=== PATIENT | female | born 1955 | race Caucasian/White ===

== ENCOUNTER → 2019-11-23 | Outpatient (CLI) | payer MEDICARE | END | disposition home or self-care (01) | LOC: LAB SHORT 08:10 → PLD 08:10 | DX: D48.5 Neoplasm of uncertain behavior of skin (principal); L82.1 Other seborrheic keratosis | CPT/HCPCS: 88305 ==

== ENCOUNTER → 2020-01-15 | Outpatient (CLI) | payer MEDICARE | LOC: LAB 14:51 → LAB SHORT 14:51 | DX: U07.1 COVID-19 (principal) | CPT/HCPCS: U0003 ==

== ENCOUNTER → 2021-01-02 | Outpatient (CLI) | payer OTHER | END | disposition home or self-care (01) | LOC: LAB SHORT 10:34 | DX: B35.1 Tinea unguium (principal); L60.2 Onychogryphosis | CPT/HCPCS: 88305; 88312 ==

== ENCOUNTER 2021-09-25 07:49 | Day surgery (SDC) | payer OTHER ==
[~2021-09-25] VITALS: Ht 162.6 cm; Wt 59.8 kg
[2021-09-25] MEDS ORDERED: ZYRTEC10 M2 (08:10)
[2021-09-25] MEDS ORDERED: CYCL10 (08:10)
[2021-09-25] MEDS ORDERED: GLUCHON (08:10)
[2021-09-25] MEDS ORDERED: OYSTER SHELL 51 EAC2 (08:10)
[2021-09-25] MEDS ORDERED: LACT (08:11)
[2021-09-25] MEDS ORDERED: HAIR, SKIN AND1 EAC1 (08:11)
[2021-09-25] MEDS ORDERED: SUMA25 (08:11)
== END 2021-09-25 10:23 | disposition home or self-care (01) ==
LOC: ORSCSDS 07:49
PROVIDERS: Internal Medicine Gastroenterology
PROC: 0DBN8ZX Excision of Sigmoid Colon, Via Natural or Artificial Opening Endoscopic, Diagnostic (ICD-10-PCS; principal; 2021-09-25 09:00)
PROC: 0D757ZZ Dilation of Esophagus, Via Natural or Artificial Opening (ICD-10-PCS; principal; 2021-09-25 09:00)
PROC: 0DB58ZX Excision of Esophagus, Via Natural or Artificial Opening Endoscopic, Diagnostic (ICD-10-PCS; principal; 2021-09-25 09:00)
PROC: 0DBM8ZX Excision of Descending Colon, Via Natural or Artificial Opening Endoscopic, Diagnostic (ICD-10-PCS; principal; 2021-09-25 09:00)
PROC: 0DBK8ZX Excision of Ascending Colon, Via Natural or Artificial Opening Endoscopic, Diagnostic (ICD-10-PCS; principal; 2021-09-25 09:00)
PROC: 0DB98ZX Excision of Duodenum, Via Natural or Artificial Opening Endoscopic, Diagnostic (ICD-10-PCS; principal; 2021-09-25 09:00)
DX: Z12.11 Encounter for screening for malignant neoplasm of colon (principal); R13.10 Dysphagia, unspecified; K21.9 Gastro-esophageal reflux disease without esophagitis; D12.2 Benign neoplasm of ascending colon; D12.4 Benign neoplasm of descending colon; K57.30 Diverticulosis of large intestine without perforation or abscess without bleeding; K44.9 Diaphragmatic hernia without obstruction or gangrene; K22.2 Esophageal obstruction; Z87.891 Personal history of nicotine dependence
CPT/HCPCS: 88305; J2704; J7120

== ENCOUNTER 2022-05-14 11:13 | Inpatient (IN) | payer OTHER ==
[~2022-05-14] VITALS: Ht 162.6 cm; Wt 60.0 kg
[~2022-05-14 11:13] MED LIST: CYCL10; GLUCHON PO; HAIR, SKIN AND1 EAC1 PO; IMITREX50 M1 PO; LACT PO; OYSTER SHELL 51 EAC2 PO; ZYRTEC10 M2 PO
[2022-05-14 12:35] LABS: Calcium, Ionized (POC) 1.24 mmol/L (1.10-1.46); Chloride (POC) 100 mmol/L (98-108); Creatinine (POC) 0.7 mg/dL (0.6-1.0); Glucose (ISTAT POC) 111 mg/dL (70-99); Hemoglobin (POC) 13.9 g/dL (12.0-16.0); Sodium (POC) 135 mmol/L (135-148); Total CO2 (POC) 25 mmol/L (21-32)
[2022-05-14] MEDS ORDERED: GABA100 PO (21:27)
[2022-05-14] MEDS ORDERED: TRAM50 PO (21:28)
--- NOTE | 2022-05-15 14:53 | NUR ---
Upon reveiving a referral for spiritual care, I visited the patient. Her sister, Kristin, is bedside. We talk about pt's new cancer diagnosis and the thoughts and fears that surround how her world has been radically altered. She shares about her family, her 's blindness and her possible transfer to another hospital. She explains about her Bahai larissa, her evangelical ([employer]) and those who are praying and supporting her. I normalize her fears and feelings, I reinforce helpful attitudes and practices and provide therapeutic listening, gentle cemetery counselor and prayer. Patient responded well and showed signs of being encouraged in her larissa and an increase in hope about the path ahead. I will continue to remain available to patient and family.
--- NOTE | 2022-05-15 19:48 | NUR ---
SHIFT SUMMARY: PT A&O X4, PLEASANT, HAPPY AND ABLE TO VOICE NEEDS. PT HAD MODERATE PAIN THROUGHOUT THE SHIFT HAS IV DILAUDID, PO TYLENOL, AND PO FLEXERIL FOR PAIN MANAGEMENT THROUGHOUT THE SHIFT. PT HAD MODERATE PAIN WITH C-COLLAR, DR. REBOLLEDO CONTACTED ABOUT SWITCHING PT TO SOFT C-COLLAR BRACE FOR COMFORT. PT ABLE TO TOLERATE SOFT FOAM C-COLLAR AND COMFORTABLE. PT FAMILY AT BEDSIDE FOR SUPPORT DURING THE SHIFT. PT ABLE TO AMBULATE WITH SBA TO THE RESTROOM. PT IN BED WITH CALL LIGHT WITHIN REACH.
--- NOTE | 2022-05-16 04:07 | NUR ---
SUMMARY: PT A/OX4, CALLS APPROPRIATELY TO SPECIFY NEEDS AND IS PLEASANT AND COOPERATIVE W/CARE. SHE'S UP W/SBA TO TOILET OR BSC. SOFT C-COLLAR REMAINS IN PLACE AT ALL TIMES PER ORDERS. SHE CONT'S TO HAVE 8-10/10 NECK AND BACK PAIN WA R/T NEW DX MALIGNANT NEOPLASM W/SPINAL CORD COMPRESSION AND C2, C3 AND T5 COMPRESSION FRACTURES PER MRI. FLEXERIL CHANGED TO Q6H PRN FOR IMPROVED PAIN CONTROL AND WAS RECIEVED W/TYLENOL FOR TOLERABLE AFFECT. DILAUDID PROVIDED PRN FOR BREAKTHROUGH PAIN AND AMBIEN WAS GIVEN AT HS PER REQUEST FOR SLEEP. SHE'S AWAITING T/F FOR NEUROSURGICAL CONSULT AND TREATMENT W/MANY SUPPORTIVE FAMILY MEMBERS. NO ACUTE CHANGES, VSS/AFEBRILE. WCTM AND REPORT TO DAY RN.
[2022-05-16 05:27] LABS: BASOPHILS ABSOLUTE AUTO 0.02 K/mm3 (0.00-0.23); BASOPHILS PERCENT AUTO 0 % (0-2); EOSINOPHILS PERCENT AUTO 0 % (0-6); Hematocrit 37.2 % (33.0-51.0); IMMATURE GRAN ABSOLUTE AUTO 0.05 K/mm3 (0.00-0.10); IMMATURE GRAN PERCENT AUTO 1 % (0-1); LYMPHOCYTES ABSOLUTE AUTO 1.42 K/mm3 (0.84-5.20); LYMPHOCYTES PERCENT AUTO 14 % (21-46); MONOCYTES ABSOLUTE AUTO 0.84 K/mm3 (0.16-1.47); MONOCYTES PERCENT AUTO 8 % (4-13); Mean Corpuscular HGB 29.4 pg (26.0-34.0); Mean Corpuscular HGB Conc 34.9 g/dL (31.5-36.5); Mean Corpuscular Volume 84 fL (80-100); Mean Platelet Volume 8.8 fL (9.1-12.4); NEUTROPHILS ABSOLUTE AUTO 7.98 K/mm3 (1.96-9.15); NEUTROPHILS PERCENT AUTO 77 % (41-73); Platelet Count 217 K/mm3 (150-400); RDW Coefficient Variation 13.1 % (11.7-14.2); RDW Standard Deviation 40.1 fL (35.1-46.3); Red Blood Cell Count 4.42 M/mm3 (3.80-5.20); White Blood Cell Count 10.31 K/mm3 (4.00-11.30)
[2022-05-16 06:05] LABS: Bun/Creatinine Ratio 41.8 (12.0-20.0); Calcium, Blood 9.1 mg/dL (8.5-10.1); Creatinine, Blood 0.43 mg/dL (0.40-1.00)
--- NOTE | 2022-05-16 17:29 | NUR ---
SHIFT SUMMARY PT WITH FAMILY AT BEDSIDE THROUGH THE DAY. AMBULATED IN HALLWAY WITH FAMILY THIS AFTERNOON AND TOLERATED WELL. NECK BRACE IN PLACE. REPORTS ONGOING PAIN TO NECK AND BACK THAT IS ONLY TREATED WITH PAIN MEDS TEMPORARILY. NOTIFIED MD OF POOR PAIN CONTROL. DOZED FOR SHORT TIME TODAY.
[2022-05-17 05:18] LABS: BASOPHILS ABSOLUTE AUTO 0.02 K/mm3 (0.00-0.23); BASOPHILS PERCENT AUTO 0 % (0-2); EOSINOPHILS PERCENT AUTO 0 % (0-6); Hematocrit 40.2 % (33.0-51.0); IMMATURE GRAN PERCENT AUTO 1 % (0-1); LYMPHOCYTES PERCENT AUTO 15 % (21-46); MONOCYTES ABSOLUTE AUTO 0.99 K/mm3 (0.16-1.47); MONOCYTES PERCENT AUTO 8 % (4-13); Mean Corpuscular HGB 29.5 pg (26.0-34.0); Mean Corpuscular HGB Conc 34.8 g/dL (31.5-36.5); Mean Corpuscular Volume 85 fL (80-100); Mean Platelet Volume 8.9 fL (9.1-12.4); NEUTROPHILS ABSOLUTE AUTO 10.02 K/mm3 (1.96-9.15); NEUTROPHILS PERCENT AUTO 76 % (41-73); Platelet Count 273 K/mm3 (150-400); RDW Coefficient Variation 13.1 % (11.7-14.2); RDW Standard Deviation 40.3 fL (35.1-46.3); Red Blood Cell Count 4.74 M/mm3 (3.80-5.20); White Blood Cell Count 13.13 K/mm3 (4.00-11.30)
[2022-05-17 05:37] LABS: Bun/Creatinine Ratio 32.9 (12.0-20.0); Calcium, Blood 9.5 mg/dL (8.5-10.1); Creatinine, Blood 0.58 mg/dL (0.40-1.00); Potassium, Blood 4.1 mmol/L (3.5-5.5)
--- NOTE | 2022-05-17 06:39 | NUR ---
BESIDE REPORT FROM ASHLEY RN - PT SITTING UP IN BED DURING REPORT- PT MEDICATED WITH DILAUID DURING REPORT- PT REQUESTED PAIN MEDICATION AND SLEEP AIDE AT 2300 AND SLEPT T/O NIGHT- PT UP AND TALKING ON PHONE THIS AM-
--- NOTE | 2022-05-17 11:24 | NUR ---
PATIENT BLOOD PRESSURE ELEVATED THIS AM, PAIN LEVEL 09/03. BP 166/94, HR 92. AMLODIPINE ON BOARD AND PAIN MEDICATIONS ON BOARD. DR ABEBE NOTIFIED, NO CHANGE IN ORDERS AT THIS TIME. BP OKAY FOR HER. IF ABOVE 170, WILL GIVE HYDRALAZINE.
--- NOTE | 2022-05-17 12:05 | NUR ---
Spiritual care visit conducted. Patient is sitting up in bed and alert. She tells me about her fears about the cancer spreading and wanting to get moving on the PET scans and being hooked up with an Oncologist SAUNDRA. She has had friends and relatives tell her about how crucial the time lines are and so patient admits to being anxious. We talk about her larissa and trusting God's timing, those He placed to care for her and resting in the God's care. She also asks me to pray for a bed to open up at [facility] which I gladly provide. I provide therapeutic listening and anxiety containment. Patient appears to be more at peace but still a bit restless. I will continue to remain available to patient and family.
--- NOTE | 2022-05-17 13:48 | NUR ---
PATIENT ALERT AND C/O PAIN THROUGHOUT SHIFT, PLEASANT AND COOPERATIVE WITH CARE. PATIENT REQUESTED TO LEAVE AMA AND SIGNED PAPERWORK AT 1326, LEFT FLOOR AT 1330. WHEELED TO LEEDS ENTRANCE BY RN, RAJ
--- NOTE | 2022-05-17 15:12 | NUR ---
THIS INSTRUCTIONAL AIDE HAS REVIEWED AND AGREES WITH ALL NOTES AND ASSESSMENTS BY MIRTHA NICHOLAS.
--- NOTE | 2022-05-17 15:16 | NUR ---
PT CHART REVIEWED, ATTMEPTED TO MAKE A VISIT. PER RN, PT MADE DECISION TOS IGN OUT AMA.
== END 2022-05-17 13:20 | disposition left against medical advice (07) | DRG 543 ==
LOC: ER 11:13 → ERHOLD 11:14 → MEDS 22:11
PROVIDERS: Emergency Medicine; Family Medicine; ADMIT Internal Medicine
DX: C79.51 Secondary malignant neoplasm of bone (principal); C34.12 Malignant neoplasm of upper lobe, left bronchus or lung; G95.29 Other cord compression; E44.0 Moderate protein-calorie malnutrition; M84.58XA Pathological fracture in neoplastic disease, other specified site, initial encounter for fracture; J30.9 Allergic rhinitis, unspecified; R03.0 Elevated blood-pressure reading, without diagnosis of hypertension; G43.709 Chronic migraine without aura, not intractable, without status migrainosus; R63.4 Abnormal weight loss; R05.3 Chronic cough; Z87.891 Personal history of nicotine dependence; Z68.22 Body mass index [BMI] 22.0-22.9, adult; Z98.890 Other specified postprocedural states; Z79.899 Other long term (current) drug therapy
CPT/HCPCS: 36415; 70498; 72156; 72157; 80047; 80048; 85014; 85025; 96374-59; 96375-59; 96376; 96376-59; 99284-25; A9270; A9579; G0378; J1100; J1170; J1650; J2405; J3010; J7030; L0160; Q9967